=== PATIENT | female | born 1990 | race Caucasian/White ===

== ENCOUNTER 2019-06-26 00:58 | Emergency (ER) | payer MEDICAID ==
[~2019-06-26] VITALS: Ht 162.6 cm; Wt 84.4 kg
[2019-06-26 01:11] VITALS: BP 116/58; Ht 162.6 cm; Wt 84.4 kg
[2019-06-26 02:08] LABS: AMPHETAMINE QUAL UR NONE DETECTED (See below)
== END 2019-06-26 03:45 | disposition home or self-care (01) ==
LOC: ED 00:58
PROVIDERS: Emergency Medicine
DX: N39.0 Urinary tract infection, site not specified (principal); F12.10 Cannabis abuse, uncomplicated
CPT/HCPCS: J7030